=== PATIENT | male | born 1945 | race Caucasian/White ===

== ENCOUNTER → 2019-01-07 09:18 | Outpatient (CLI) | payer MEDICARE, OTHER | END | disposition home or self-care (01) | LOC: D.HCCARDIO 09:18 | PROVIDERS: ATTEND Internal Medicine Cardiovascular Disease | DX: I20.9 Angina pectoris, unspecified (principal) ==

== ENCOUNTER → 2019-01-15 11:02 | Outpatient (CLI) | payer MEDICARE, OTHER ==
--- NOTE | 2019-01-18 13:29 | EC ---
PATIENT:KATE BUTLER DATE OF SERVICE: 01/15/19 SEX: M MEDICAL RECORD: [id number] DATE OF : 45 LOCATION:D[facility] AGE OF PATIENT: 73 ADMISSION DATE: 01/15/19 REFERRING PHYSICIAN: INTERPRETING PHYSICIAN: TELMA COTTON MD ECHOCARDIOGRAM REPORT ECHO CHARGES 4 ECHO COMPLETE Date: 01/15/19 CLINICAL DIAGNOSIS: HEART MURMUR ECHOCARDIOGRAPHIC MEASUREMENTS (adult normal given) AC root (d.<3.7cm) 4.2 cm LV Septum d (<1.2 cm> 1.3 cm Valve Excursion 2.2 cm LV Septum (systole) 1.5 cm Left Atria (s.<4.0cm> 3.5 cm LVPW d(<1.2cm) 1.4 cm RV (d.<2.3cm) 3.5 cm LVPW (sytole) 1.7 cm LV diastole(<5.6CM) 4.5 cm MV E-F(>70mm/sec) cm LV systole 3.0 cm LVOT Diameter 1.9 cm MV exc.(>10mm) 1.3 cm Est.ejection fraction (50-75%) % DOPPLER: LVIT cm/sec A 46.0 cm/sec E 20.0 cm/sec LA cm/sec RVSP 51 mmHg LVOT 107 cm/sec AOP1/2T m/s Asc. Ao 124 cm/sec RVOT 52 cm/sec RA cm/sec PA 98 cm/sec AV Gradient Peak 6.14 mmHg AV Mean 3.24 mmHg AV Area 2.8 cm MV Gradient Peak 2.67 mmHg MV Mean 0.89 mmHg MV Area cm COMMENTS: Sales Representative Metals: 2 NASIR BARCENAS Geophysical Prospecting Surveyor: 3 Dr. Hall TAPE# PACS Pericardial Effusion N DATE OF SERVICE: Adequate 2D, color flow, spectral Doppler, and M-mode. Mild LVH. LV internal dimension is normal. Wall motion is normal. EF is greater than or equal to 55%. Aortic valve is tricuspid. No evidence of stenosis by Doppler interrogation. Left atrium normal at 3.5 cm. Mitral valve shows no prolapse. Trace MR. Right-sided chambers are grossly normal. Mild TR. TRANSINT:[id number] Voice Confirmation ID: [id number] DOCUMENT ID: [id number] ECHOCARDIOGRAM REPORT [id number] LUKE,KATE TELMA COTTON MD at 1329 CC: [id number] DICTATION DATE: 01/18/19 1302 COMMISSARY CLERK: 01/18/19 1308 DEP CLI 01/15/19 [facility] [address] [place] [address]
== END | disposition home or self-care (01) ==
LOC: D.HCCECHO 11:02
PROVIDERS: ATTEND Internal Medicine Interventional Cardiology
DX: R09.89 Other specified symptoms and signs involving the circulatory and respiratory systems (principal); R01.1 Cardiac murmur, unspecified